=== PATIENT | male | born 1950 | race Caucasian/White ===

== ENCOUNTER 2018-05-25 23:25 | Emergency (ER) | payer OTHER ==
[~2018-05-25] VITALS: Ht 180.3 cm; Wt 81.6 kg
--- NOTE | 2018-05-25 23:26 | NUR ---
BIB ALS TO ER BED 3
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
[2018-05-25 23:31] VITALS: BP 135/75
[2018-05-25] MEDS ORDERED: ZET10 PO (23:35)
[2018-05-25] MEDS ORDERED: LOSA100T51 PO (23:35)
[2018-05-25] MEDS ORDERED: ATOR40TA PO (23:35)
[2018-05-25] MEDS ORDERED: LACT10SO1 PO (23:35)
[2018-05-25] MEDS ORDERED: AMLO10TA PO (23:35)
[2018-05-25] MEDS ORDERED: METO25TE2 PO (23:35)
--- NOTE | 2018-05-25 23:45 | NUR ---
DR. SHIELDS AT BEDSIDE EVALUATING PATIENT
[2018-05-26] VITALS: BP 130/72
--- NOTE | 2018-05-26 | NUR ---
CLEARED TO BOOK BY DR. SHIELDS. Patient discharged with v/s stable. Written and verbal after care instructions given and explained. Patient verbalized understanding. Ambulatory with steady gait. All questions addressed prior to discharge. Advised to follow up with PMD.
== END 2018-05-26 ==
LOC: MED 23:25
DX: F10.129 Alcohol abuse with intoxication, unspecified (principal); E11.9 Type 2 diabetes mellitus without complications; I10 Essential (primary) hypertension; E78.5 Hyperlipidemia, unspecified; Z79.899 Other long term (current) drug therapy; V49.49XA Driver injured in collision with other motor vehicles in traffic accident, initial encounter; Y93.89 Activity, other specified; Y92.89 Other specified places as the place of occurrence of the external cause; Y99.8 Other external cause status
CPT/HCPCS: 82948; 99283